=== PATIENT | female | born 1960 | race Caucasian/White ===

== ENCOUNTER 2021-11-28 11:00 | Outpatient (RCR) | payer MEDICARE, MEDICAID, SELFPAY | END 2021-11-28 15:55 | disposition home or self-care (01) | LOC: HO.PTCHIC 11:00 | PROVIDERS: PCP Internal Medicine; Visit Provider Internal Medicine Rheumatology | DX: M51.36 Other intervertebral disc degeneration, lumbar region (principal); M62.830 Muscle spasm of back; G89.29 Other chronic pain | CPT/HCPCS: 97110; 97140; 97150; 97162; 97530 ==

== ENCOUNTER 2022-04-15 13:00 | Outpatient (RCR) | payer MEDICARE, MEDICAID, SELFPAY | END 2022-04-15 17:01 | disposition home or self-care (01) | LOC: HO.PTCHIC 13:00 | PROVIDERS: Visit Provider Podiatrist | DX: M77.50 Other enthesopathy of unspecified foot and ankle (principal); M79.671 Pain in right foot; M79.672 Pain in left foot; L40.50 Arthropathic psoriasis, unspecified; M62.50 Muscle wasting and atrophy, not elsewhere classified, unspecified site | CPT/HCPCS: 97110; 97140; 97161 ==

== ENCOUNTER → 2023-09-14 15:30 | Outpatient (RCR) | payer MEDICARE, MEDICAID, SELFPAY | END | disposition home or self-care (01) | LOC: HO.OT 04-30 14:50 | PROVIDERS: Visit Provider Internal Medicine Rheumatology | DX: Q79.60 Ehlers-Danlos syndrome, unspecified (principal) | CPT/HCPCS: 97018; 97110; 97167; 97530; 97535; 97760 ==